=== PATIENT | male | born 2000 | race American Indian/Alaskan Native ===

== ENCOUNTER 2021-12-06 12:52 | Emergency (ER) | payer SELFPAY ==
[2021-12-06 14:48] VITALS: BP 114/65
[2021-12-06] MEDS ORDERED: methylPREDNISolone Sod Succinate 125 MG/2 ML INJ IM ONE (16:13)
[2021-12-06] MEDS ORDERED: FAMOTIDINE 20 MG TAB PO ONE (16:13)
--- NOTE | 2021-12-06 16:19 | Emergency Department Report ---
- General Chief complaint: Skin Rash Stated complaint: RASH Time Seen by Provider: 12/06/21 16:11 Source: patient Mode of arrival: Ambulatory Limitations: No Limitations - History of Present Illness Initial comments: 21-year-old black male presents to the emergency department for evaluation of 1 week history of worsening full body rash. He states that he developed a rash 1 week ago and has noted worsening over the past few days. He denies shortness of breath facial swelling or chest tightness, but states that he has recently in the last week started staying at a hotel secondary to traveling for work. He denies any changes in bath products, lotions, or detergents. complaint: rash -: Gradual, week(s) (1) Location: generalized Severity: moderate Quality: other (Itching) Consistency: constant Associated symptoms: itching Treatments Prior to Arrival: none - Related Data Previous Rx's Medication Instructions Recorded Last Taken Type methylPREDNISolone [Medrol 4MG 4 mg PO DAILY #1 pack 12/06/21 Unknown Rx DOSEPAK (21 tabs)] Allergies Allergy/AdvReac Type Severity Reaction Status Date / Time dextromethorphan Allergy Hives Verified 12/06/21 14:42 [From Dimetapp Cold-Congestion] diphenhydramine Allergy Hives Verified 12/06/21 14:42 [From [employer]etapp Cold-Congestion] guaifenesin Allergy Hives Verified 12/06/21 14:42 [From [employer]etapp Cold-Congestion] phenylephrine Allergy Hives Verified 12/06/21 14:42 [From [employer]etapp Cold-Congestion] pseudoephedrine Allergy Hives Verified 12/06/21 14:42 [From Dimetapp Cold-Congestion] rocephin Allergy Hives Uncoded 12/06/21 14:42 Abscess Boil HPI - HPI Chief Complaint: Skin Rash Stated Complaint: RASH Time Seen by Provider: 12/06/21 16:11 Duration: 1 Week Location: Other (Full body) Severity: Moderate History: No Fever, No Pain, No Purulent Drainage, No Numbness, No Foreign Body, No Previous History, No Insect Bite Home Medications: Previous Rx's Medication Instructions Recorded Last Taken Type methylPREDNISolone [Medrol 4MG 4 mg PO DAILY #1 pack 12/06/21 Unknown Rx DOSEPAK (21 tabs)] Allergies/Adverse Reactions: Allergies Allergy/AdvReac Type Severity Reaction Status Date / Time dextromethorphan Allergy Hives Verified 12/06/21 14:42 [From Dimetapp Cold-Congestion] diphenhydramine Allergy Hives Verified 12/06/21 14:42 [From Dimetapp Cold-Congestion] guaifenesin Allergy Hives Verified 12/06/21 14:42 [From Dimetapp Cold-Congestion] phenylephrine Allergy Hives Verified 12/06/21 14:42 [From Dimetapp Cold-Congestion] pseudoephedrine Allergy Hives Verified 12/06/21 14:42 [From Dimetapp Cold-Congestion] rocephin Allergy Hives Uncoded 12/06/21 14:42 ED Review of Systems ROS: Stated complaint: RASH Other details as noted in HPI Comment: All other systems reviewed and negative Constitutional: denies: chills, diaphoresis, fever, malaise, weakness Eyes: denies: eye pain, eye discharge ENT: denies: ear pain, throat pain, dental pain, congestion Respiratory: denies: cough, orthopnea, shortness of breath Cardiovascular: denies: chest pain, palpitations, dyspnea on exertion, orthopnea Endocrine: no symptoms reported Gastrointestinal: denies: abdominal pain, nausea, vomiting, diarrhea Genitourinary: denies: urgency, dysuria, frequency, hematuria, discharge, testicular pain Musculoskeletal: denies: back pain, joint swelling, arthralgia, myalgia Skin: rash, pruritus. denies: lesions, change in color, change in hair/nails Neurological: denies: headache, weakness, numbness, paresthesias, abnormal gait, vertigo ED Past Medical Hx - Medications Home Medications: Home Medications Medication Instructions Recorded Confirmed Last Taken Type methylPREDNISolone [Medrol 4MG 4 mg PO DAILY #1 pack 12/06/21 Unknown Rx DOSEPAK (21 tabs)] ED Physical Exam - General Limitations: No Limitations General appearance: alert, in no apparent distress - Head Head exam: Present: atraumatic, normocephalic - Eye Eye exam: Present: normal appearance. Absent: conjunctival injection, periorbital swelling - ENT ENT exam: Present: normal exam, normal orophraynx - Expanded ENT Exam Expanded Mouth exam: Present: normal external inspection, tongue normal Throat exam: Positive: normal inspection. Negative: tonsillar erythema, tonsillar exudate, R peritonsillar mass, L peritonsillar mass - Neck Neck exam: Present: normal inspection. Absent: tenderness, lymphadenopathy - Respiratory Respiratory exam: Present: normal lung sounds bilaterally. Absent: respiratory distress, chest wall tenderness, accessory muscle use - Cardiovascular Cardiovascular Exam: Present: regular rate, normal heart sounds - GI/Abdominal GI/Abdominal exam: Present: soft, normal bowel sounds. Absent: distended, tenderness, guarding, rebound, rigid - Extremities Exam Extremities exam: Present: normal inspection. Absent: full ROM - Back Exam Back exam: Present: normal inspection, full ROM. Absent: tenderness, CVA tenderness (R), CVA tenderness (L) - Neurological Exam Neurological exam: Present: alert, oriented X3 - Psychiatric Psychiatric exam: Present: normal affect, normal mood - Skin Skin exam: Present: warm, dry, intact, normal color, rash ED Course Vital Signs 12/06/21 14:47 Temperature 98.2 F Pulse Rate 77 Respiratory 18 Rate Blood Pressure 114/65 [Right] O2 Sat by Pulse 100 Oximetry ED Medical Decision Making - Medical Decision Making 21-year-old black male presents to the emergency department for evaluation of 1 week history of worsening full body rash. He states that he developed a rash 1 week ago and has noted worsening over the past few days. He denies shortness of breath facial swelling or chest tightness, but states that he has recently in the last week started staying at a hotel secondary to traveling for work. He denies any changes in bath products, lotions, or detergents. Symptoms and examination consistent with contact dermatitis unspecified. Patient was advised to take medications as prescribed. Follow-up with dermatology for further evaluation. Return to the emergency room if worsening symptoms. Critical care attestation.: If time is entered above; I have spent that time in minutes in the direct care of this critically ill patient, excluding procedure time. ED Disposition Clinical Impression: Contact dermatitis Qualifiers: Contact dermatitis type: unspecified Contact dermatitis trigger: unspecified trigger Qualified Code(s): L25.9 - Unspecified contact dermatitis, unspecified cause Disposition: HOME / SELF CARE / HOMELESS Is pt being admited?: No Does the pt Need Aspirin: No Condition: Stable Instructions: Contact Dermatitis, [id number] Additional Instructions: Take medications as prescribed follow-up with dermatology for further evaluation. Return to the emergency room for worsening symptoms or no improvement. Prescriptions: methylPREDNISolone [Medrol 4MG DOSEPAK (21 tabs)] 4 mg PO DAILY #1 pack Referrals: CATHY WING MD [Referring] - 3-5 Days Time of Disposition: 16:19
== END 2021-12-06 16:41 | disposition home or self-care (01) ==
LOC: ED 12:52
DX: L25.9 Unspecified contact dermatitis, unspecified cause (principal); Z88.8 Allergy status to other drugs, medicaments and biological substances; Z79.899 Other long term (current) drug therapy
CPT/HCPCS: 96372; 99282; J2930